=== PATIENT | male | born 1980 | race Caucasian/White ===

== ENCOUNTER 2020-12-13 04:24 | Emergency (ER) | payer SELFPAY ==
[~2020-12-13] VITALS: Ht 188 cm; Wt 90.7 kg
[2020-12-13] MEDS ORDERED: OXYC-128 PO (05:04)
--- NOTE | 2020-12-13 05:12 | NUR ---
Patient discharged to home in stable condition. Written and verbal after care instructions given. Patient verbalizes understanding of instructions. Stressed follow up or return to ER for worsening s/s.
[2020-12-13 05:14] VITALS: BP 133/84
[2020-12-13] MEDS ORDERED: LIDOCAINE HCL 2% 20 ML VIAL IJ ONE (05:15)
== END 2020-12-13 05:15 | disposition home or self-care (01) ==
LOC: ER 04:33
DX: S56.222A Laceration of other flexor muscle, fascia and tendon at forearm level, left arm, initial encounter (principal); S51.812A Laceration without foreign body of left forearm, initial encounter; W25.XXXA Contact with sharp glass, initial encounter; Y92.89 Other specified places as the place of occurrence of the external cause; Z88.0 Allergy status to penicillin
CPT/HCPCS: A4663; J3490

== ENCOUNTER 2020-12-29 14:08 | Emergency (ER) | payer SELFPAY ==
[~2020-12-29] VITALS: Ht 188 cm; Wt 90.7 kg
[~2020-12-29 14:08] MED LIST: OXYC-128 PO
[2020-12-29] MEDS ORDERED: NEOMY/BACITRA/POLYMYXIN B OINT UD PACKET TP ONE (14:37)
== END 2020-12-29 14:32 | disposition home or self-care (01) ==
LOC: ER 14:08
DX: S51.812D Laceration without foreign body of left forearm, subsequent encounter (principal); X58.XXXD Exposure to other specified factors, subsequent encounter; T81.33XA Disruption of traumatic injury wound repair, initial encounter; Z88.0 Allergy status to penicillin
CPT/HCPCS: A4663